=== PATIENT | female | born 1985 | race Caucasian/White ===

== ENCOUNTER 2024-02-20 10:14 | Emergency (ER) | payer OTHER, SELFPAY ==
[2024-02-20 10:24] VITALS: BP 140/99
--- NOTE | 2024-02-20 11:03 | ED.GENMED ---
History of Present Illness
General
Chief Complaint: Cough
Source: patient
Exam Limitations: none
Time Seen by Provider: 02/20/24 10:41
Nursing documentation reviewed up to this point in time: agreed with
History of Present Illness
History of Present Illness:
38 yo female developed a cough two weeks ago, on day 6 of Doxycycline, had neg chest xray last week, cough persistent and to the point where she just about passes out. Has developed pain in the left chest.
Denies f/ch/n/v/d/c
Past History
Past History
ED Past Medical History: Other (Celiac)
ED Past Surgical History: None and Orthopedic
Social History
Tobacco: Non-smoker
Alcohol: Occasional
Personal:
Living: with family
Employment: Not employed
Review of Systems
Review of Systems
Allergies reviewed?: Yes
All Other Systems: ROS reviewed and negative except as documented in HPI and ROS
Constitutional: Denies fever or chills
Respiratory: Reports cough; Denies trouble breathing
Cardiac: Reports chest pain
ABD/GI: Denies no symptoms, abdominal pain, nausea, vomiting or diarrhea
: Denies dysuria
Musculoskeletal: Reports no symptoms
Skin: Reports no symptoms
Neurological: Reports no symptoms
Phy Exam
Physical Exam
Physical Exam:
GENERAL: No acute distress. A&Ox3.
CONSTITUTIONAL: Afebrile.
EYES: clear, conjunctivae normal
ENMT: moist mucus membranes, Pharynx nl
RESPIRATORY: Regular respirations, nonlabored, lungs with crackles in bases
CARDIOVASCULAR: Regular rate and rhythm, no murmurs, no rubs.
GI: Soft, nontender, normal BS
MUSCULOSKELETAL: Moves with ease. Well perfused.
SKIN: Warm, dry, pink
PSYCH: Normal mood and affect. Well kept, interactive and appropriate
NEUROLOGIC: Awake, alert and oriented. No focal neurological deficits
Course
Orders/Labs/Results
Orders:
Orders
02/20/24 10:32
CXR2 [CR Chest - 2 Views ] Urgent
Comment:
Reason For Exam: cough for a couple of wks
Vital Signs
Initial and Last Documented VS:
Initial Vital Signs
Temp Pulse Resp BP Pulse Ox
97.7 F 110 18 140/99 99
02/20/24 10:24 02/20/24 10:24 02/20/24 10:24 02/20/24 10:24 02/20/24 10:24
Last Documented Vital Signs
Temp Pulse Resp BP Pulse Ox
97.7 F 110 18 140/99 99
02/20/24 10:24 02/20/24 10:24 02/20/24 10:24 02/20/24 10:24 02/20/24 10:24
MDM/Problems Addressed
Differential Diagnosis Includes:
Viral URI, PNA
MDM/Problems Addressed:
38 yo female developed a cough two weeks ago, on day 6 of Doxycycline, had neg chest xray last week, cough persistent and to the point where she just about passes out. Has developed pain in the left chest.
Denies f/ch/n/v/d/c
Afebrile
Lungs with crackles in bases, left side chest pain, will repeat CXR
Chest x-ray initially read by this examiner: No acute disease
Rx for albuterol and prednisone sent to patient pharmacy, most likely viral uri
*Critical Care Note
Total Time (30-74mins, 75-104mins- exclusive of procedures): Not Applicable
ED Attending Note
-
Portions of this chart may have been created with voice recognition software.� Occasional wrong word or��sound alike� substitutions may have occurred due to the inherent limitations of voice recognition software.
Discharge Plan
Departure
Patient Disposition: Home (Routine Discharge)
Date of Disposition: 02/20/24
Time of Disposition: 12:05
Patient with high blood pressure during this ER visit?: No
Condition: Good
Discharge Problem:
URI (upper respiratory infection)
Instructions: Viral Upper Respiratory Infection, Adult (DC)
Prescriptions:
New
albuterol sulfate 90 mcg/actuation HFA aerosol inhaler
2 puff inhalation Q6H MDD cough PRN (Reason: shortness of breath or wheezing) Qty: 6.7 0RF
prednisone 20 mg tablet
40 mg PO DAILY Qty: 8 0RF
No Action
enoxaparin 40 MG/0.4 ML syringe
40 mg SC QPM
cholecalciferol (vitamin D3) 2,000 UNIT tablet
2,000 unit PO DAILY
[id number] fum-folic 1 EACH tablet
1 ea PO DAILY
Synthroid
50 mcg PO DAILY
acetaminophen 325 MG tablet
650 mg PO Q4HPRN PRN (Reason: headache) 0RF
nifedipine 10 MG capsule
10 mg PO Q8 Qty: 30 0RF
Referrals:
Tammi Bah MD [Family Provider] - As needed
Activity Restrictions/Additional Instructions:
As we discussed, your chest x-ray is clear. I sent a prescription to your pharmacy for albuterol inhaler to take 2 puffs every 6 hours as needed for significant cough, wheezing or shortness of breath.
I also sent a prescription to your pharmacy for prednisone to take 40 mg daily for the next 4 days.
Interventions
Interventions:
*Risk Screen - Suicide Last Done: 02/20/24 10:29
*Neglect/Abuse Screening Last Done: 02/20/24 10:29
*Nursing Disposition Last Done: 02/20/24 12:11
ED- Pulmonary Assessment Last Done: 02/20/24 12:11
Discharge Date and Time
Discharge Date/Time: 02/20/24 12:12
Print Language: BERMUDIAN
== END 2024-02-20 12:12 | disposition home or self-care (01) ==
LOC: EMR 10:14
PROVIDERS: EMERGENCY PHYSICIAN Emergency Medicine; FAMILY PHYSICIAN Family Medicine
DX: J06.9 Acute upper respiratory infection, unspecified (principal); R07.89 Other chest pain; R55 Syncope and collapse; K90.0 Celiac disease; Z88.5 Allergy status to narcotic agent; Z88.2 Allergy status to sulfonamides; Z91.018 Allergy to other foods
CPT/HCPCS: 99283; 71046

== ENCOUNTER 2024-03-15 14:29 | Outpatient (RCR) | payer OTHER, SELFPAY | END 2024-03-15 23:59 | disposition home or self-care (01) | LOC: ROT 14:29 | PROVIDERS: ATTENDING PHYSICIAN Family Medicine | DX: F09 Unspecified mental disorder due to known physiological condition (principal); R56.9 Unspecified convulsions; Z73.6 Limitation of activities due to disability | CPT/HCPCS: 92507; 92523; 97167; 97530; 97535 ==

== ENCOUNTER 2024-04-16 07:05 | Outpatient (RCR) | payer SELFPAY | END 2024-04-17 06:40 | disposition home or self-care (01) | LOC: ROT 07:05 | PROVIDERS: ATTENDING PHYSICIAN Family Medicine | DX: F09 Unspecified mental disorder due to known physiological condition (principal); R56.9 Unspecified convulsions; Z73.6 Limitation of activities due to disability | CPT/HCPCS: 97530; 97535 ==

== ENCOUNTER 2024-04-18 06:39 | Outpatient (RCR) | payer OTHER, SELFPAY | END 2024-04-18 23:59 | disposition home or self-care (01) | LOC: ROT 06:39 | PROVIDERS: ATTENDING PHYSICIAN Family Medicine | DX: F09 Unspecified mental disorder due to known physiological condition (principal); R56.9 Unspecified convulsions; R47.02 Dysphasia; R41.841 Cognitive communication deficit | CPT/HCPCS: 92507 ==

== ENCOUNTER 2024-05-14 06:54 | Outpatient (RCR) | payer OTHER, SELFPAY | END 2024-05-14 23:59 | disposition home or self-care (01) | LOC: ROT 06:54 | PROVIDERS: ATTENDING PHYSICIAN Family Medicine | DX: F09 Unspecified mental disorder due to known physiological condition (principal); R56.9 Unspecified convulsions; R47.02 Dysphasia; R41.841 Cognitive communication deficit; F80.2 Mixed receptive-expressive language disorder; F80.1 Expressive language disorder | CPT/HCPCS: 92507 ==